=== PATIENT | female | born 2000 | race Caucasian/White ===

== ENCOUNTER → 2023-03-23 | Emergency (ER) | payer BC, SELFPAY ==
[~2023-03-23] MED LIST: Lorazepam 1 MG TAB ONE
[2023-03-23 22:02] LABS: #Neutrophils 6.2 10x3/uL (1.5-8.4); %Basophils 0.5 % (0.0-2.0); %Eosinophils 1.8 % (0.0-6.0); %Lymphocytes 33.7 % (18.0-47.0); %Monocytes 8.3 % (0.0-10.0); %Neutrophils 55.4 % (40.0-75.0); Hematocrit 43.1 % (34.9-44.5); Hemoglobin 14.6 g/dL (12.0-15.5); Mean Corpuscular HGB CONC 33.9 g/dL (32.0-36.0); Mean Corpuscular Hemoglobin 29.9 pg (27.0-33.0); Mean Corpuscular Volume 88.1 fl (81.6-98.3); Mean Platelet Volume 10.3 fl (7.4-10.4); Platelet Count 352 10x3/uL (150-450); RBC Distribution Width 11.9 % (11.5-14.5); Red Blood Cell (RBC) Count 4.89 10x6/uL (3.90-5.03); White Blood Cell (WBC) Count 11.2 10x3/uL (3.5-10.5)
[2023-03-23 22:03] LABS: #Basophils 0.1 10x3/uL (0.0-0.2); #Eosinphils 0.2 10x3/uL (0.0-0.5); #Monocytes 0.9 10x3/uL (0.0-1.1)
[2023-03-23 22:11] LABS: BHCG - Serum Negative (NEGATIVE); Pregs Control Background? CLEAR/WHITE (CLR/WHITE); Pregs Control Bar Appear? YES (CONTROL BAR)
[2023-03-23 22:19] LABS: Anion Gap 14 mmol/L (10-20); BUN (Urea Nitrogen) 15 mg/dL (7.0-18.7); Carbon Dioxide 20 mmol/L (22-29); Chloride 107 mmol/L (98-107); Sodium 137 mmol/L (136-145)
[2023-03-23 22:20] LABS: ALT (SGPT) 14 U/L (8-55); AST (SGOT) 23 U/L (5-34); Albumin 4.7 g/dL (3.5-5.0); Alkaline Phosphatase 57 U/L (40-110); Bilirubin, Total 0.2 mg/dL (0.2-1.2); Calc. Creatinine Clearance 0 mL/min (70-130); Calcium 9.4 mg/dL (7.8-10.44); Estimated GFR 97; Globulin 3.2 g/dL (2.4-3.5); Glucose 130 mg/dL (70-105); Lipase 56 U/L (8-78); Magnesium 2.1 mg/dL (1.6-2.6); Protein, Total 7.9 g/dL (6.0-8.3)
[2023-03-23 22:25] LABS: Troponin I Less than 0.010 ng/mL (< 0.028)
== END ==
LOC: CSHERS 21:16
DX: F41.9 Anxiety disorder, unspecified (principal)
CPT/HCPCS: 36415; 80053; 83605; 83690; 83735; 83880; 84443; 84484; 84703; 85025; 93005; 93010; 96360